=== PATIENT | female | born 2000 | race American Indian/Alaskan Native ===

== ENCOUNTER 2021-03-15 14:40 | Emergency (ER) | payer SELFPAY ==
[2021-03-15 15:19] VITALS: BP 107/67
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
== END 2021-03-15 16:50 | disposition left against medical advice (07) ==
LOC: ED 14:40
DX: O26.893 Other specified pregnancy related conditions, third trimester (principal); M25.511 Pain in right shoulder; M54.5 Low back pain; R10.30 Lower abdominal pain, unspecified; Z3A.30 30 weeks gestation of pregnancy; Y04.8XXA Assault by other bodily force, initial encounter; Y93.89 Activity, other specified; Y92.89 Other specified places as the place of occurrence of the external cause; Y99.8 Other external cause status
CPT/HCPCS: 99281